=== PATIENT | male | born 1950 | race Caucasian/White ===

== ENCOUNTER 2025-03-04 15:25 | Emergency (ER) | payer MEDICAID, MEDICARE, SELFPAY ==
[2025-03-04] VITALS (20 sets, daily range): BP systolic 84–143; BP diastolic 50–63; PULSE 74–103; RESP 16–18; TEMP 36.4–36.8; O2SAT 92–98; BMI 31.3
--- NOTE | 2025-03-04 15:30 | DI.RAD.S_ITS ---
P the ROCEDURE: XR TIBIA FIBULA LT 2V INDICATIONS: r knee and upper leg pain, recent injury, abrasions, redness TECHNIQUE: 2 views of the tibia and fibula were acquired. COMPARISON: None. FINDINGS: Bones: No fractures or dislocations. No suspicious bony lesions. Mild degenerative changes of the knee and chondrocalcinosis. Soft tissues: No suspicious soft tissue calcifications or masses. No radiopaque foreign body or soft tissue gas. IMPRESSION: No acute abnormality. Dictated by: Preston Adair M.D. on 03/04/2025 at 16:16 Approved by: Preston Adair M.D. on 03/04/2025 at 16:16
--- NOTE | 2025-03-04 15:30 | DI.RAD.S_ITS ---
PROCEDURE: XR KNEE LT 3V INDICATIONS: knee and upper leg pain, recent injury, abrasions, redness TECHNIQUE: 3 views of the knee were acquired. COMPARISON: None. FINDINGS: Bones: No fractures or dislocations. No suspicious bony lesions. Tricompartmental joint space narrowing with associated osteophytosis. Soft tissues: No joint effusion. No suspicious soft tissue calcifications. Chondrocalcinosis IMPRESSION: No acute bony abnormality or significant effusion. Chondrocalcinosis, which can be seen in the setting of CPPD, aging, and parathyroid disorders. [id number]-[id number] tricompartmental osteoarthritis. Kellgren-Ramo Grade 2. Dictated by: Justyn Zavala M.D. on 03/04/2025 at 16:37 Approved by: Justyn Zavala M.D. on 03/04/2025 at 16:37
--- NOTE | 2025-03-04 15:31 | ED_ITS ---
HPI - General Adult General Chief complaint: Extremity Injury, Lower Stated complaint: LEFT knee pain Time Seen by Provider: 03/04/25 15:29 Source: patient, EMS, RN notes reviewed and old records reviewed Mode of arrival: EMS Limitations: no limitations History of Present Illness HPI narrative: 74-year-old male history of prior stroke with left-sided hemiparesis, hypertension, dyslipidemia, diabetes type 2, coronary artery disease, COPD on aspirin 81 mg patient presents with complaint of left knee and left lower extremity pain. Patient states last night or early this morning he was in his wheelchair was very dark he accidentally pushed himself in 2 bed frame forcefully. He states he has some pain and bruising at his knee but he also notes little bit of pain at the upper tibial area. Patient also has some scratches and abrasions on his left lower extremity he states those has been there about a week to 2 weeks which he states when it is from accidentally scratching himself there some redness at that area which he indicates maybe new. He states he can move his leg normally, he denies any changes to sensation or swelling. States he has a pain pill earlier which was helpful. He denies fevers or chills. No chest pain or shortness of breath. No nausea or vomiting. He denies any other GI or urinary symptoms. Reports an allergy to codeine and penicillin. He is unsure of his medical history and it was taken from his transfer report. Related Data Previous Rx's ?Medication ?Instructions ?Recorded clindamycin HCl 300 mg capsule 300 mg PO Q6H 7 days #2 8 caps 03/04/25 Allergies Allergy/AdvReac Type Severity Reaction Status Date / Time codeine Allergy Unknown Verified 03/04/25 15:28 Penicillins Allergy Unknown Verified 03/04/25 15:28 Review of Systems Review of Systems ROS Unobtainable: All systems reviewed & are unremarkable except as noted in HPI and below Patient History Social History Smoking Status: Current every day smoker Exam Narrative Exam Narrative: GENERAL: Alert and oriented x 2 self and location, conversant, patient is in mild distress HEENT: Head normocephalic, atraumatic, EOMI, pupils reactive, face symmetric, moist mucous membranes NECK: Supple, full range of motion CARDIOVASCULAR: Regular rate and rhythm without murmurs, rubs or gallops. RESPIRATORY: Breath sounds equal bilaterally, no wheezes rales or rhonchi. ABDOMEN: Soft, nontender. Normoactive bowel sounds all 4 quadrants. No guarding or rebound, rigidity, no mass : No CVA tenderness EXTREMITIES: Normal range of motion, no clubbing or edema. Neurovascularly intact. Patient has some ecchymosis of the left knee but no significant swelling, he is minimally tender on palpation with good range of motion. He has some mild tenderness of the upper anterior leg with no swelling. He has multiple abrasions on his left lower extremity. There is some erythema of the distal anterior javier. No bony tenderness. Positive pulses bilaterally. Patient has a normal range of motion of both lower extremities with sensation intact bilaterally. NEUROLOGICAL: Cranial nerves II through XII grossly intact. Moving all extremities SKIN: Warm, dry, no petechiae, no rashes or lesions other than noted above. Initial Vital Signs Initial Vital Signs: Vital Signs Temperature 97.5 F L 03/04/25 15:22 Pulse Rate 103 H 03/04/25 15:22 Respiratory Rate 18 03/04/25 15:22 Blood Pressure 84/53 L 03/04/25 15:22 Pulse Oximetry 94 03/04/25 15:22 Oxygen Delivery Method Room Air 03/04/25 15:22 Course Orders Ordered: ED Orders 03/04/25 15:30 XR knee LT 3V Stat XR tibia fibula LT 2V Stat CBC Auto Diff [Complete Blood Count AUTO DIFF] Stat CMP [Comprehensive Metabolic Panel] Stat Lactate (Lactic Acid) Stat Lipase Stat Procalcitonin Stat 03/04/25 15:58 Blood Culture Stat Discontinued Medications Sodium Chloride (Normal Saline 0.9%) 1,000 mls @ 1,000 mls/hr IV BOLUS ONE Stop: 03/04/25 16:30 Last Infusion: 03/04/25 16:52 Dose: Infused Documented By: Admin: 03/04/25 15:41 Dose: 1,000 mls/hr Documented By: ROSEY Clindamycin Phosphate (Cleocin) 900 mg in 50 mls @ 50 mls/hr IV NOW ONE Stop: 03/04/25 16:30 Last Infusion: 03/04/25 16:52 Dose: Infused Documented By: Admin: 03/04/25 15:41 Dose: 50 mls/hr Documented By: EB Vital Signs Vital signs: Vital Signs - 8 hr 03/04/25 15:22 03/04/25 15:29 03/04/25 15:36 Temperature 97.5 F L Pulse Rate 103 H 89 Respiratory Rate 18 Blood Pressure 84/53 L 104/54 L Pulse Oximetry 94 93 Oxygen Delivery Method Room Air 03/04/25 16:00 03/04/25 16:30 03/04/25 16:52 Temperature Pulse Rate 99 H 91 H Respiratory Rate 16 Blood Pressure 117/57 L Pulse Oximetry 94 97 Oxygen Delivery Method 03/04/25 16:52 03/04/25 17:00 03/04/25 17:00 Temperature Pulse Rate 87 76 Respiratory Rate 16 Blood Pressure 115/57 L Pulse Oximetry 95 97 Oxygen Delivery Method 03/04/25 17:30 03/04/25 17:30 03/04/25 17:52 Temperature Pulse Rate 75 94 H Respiratory Rate 16 Blood Pressure 111/50 L Pulse Oximetry 98 92 Oxygen Delivery Method 03/04/25 18:00 03/04/25 18:01 03/04/25 18:30 Temperature Pulse Rate 98 H Respiratory Rate Blood Pressure 127/58 L 111/53 L Pulse Oximetry 95 Oxygen Delivery Method 03/04/25 18:30 03/04/25 19:00 03/04/25 19:00 Temperature Pulse Rate 79 82 Respiratory Rate 18 Blood Pressure 111/53 L Pulse Oximetry 94 93 Oxygen Delivery Method 03/04/25 19:19 03/04/25 19:26 03/04/25 19:31 Temperature 97.9 F Pulse Rate 74 Respiratory Rate 18 Blood Pressure 111/53 L 143/63 H Pulse Oximetry 96 95 Oxygen Delivery Method Room Air 03/04/25 20:00 03/04/25 20:18 03/04/25 20:19 Temperature Pulse Rate 78 Respiratory Rate Blood Pressure 115/53 L 134/62 Pulse Oximetry 93 Oxygen Delivery Method 03/04/25 20:19 03/04/25 20:20 Temperature 98.2 F Pulse Rate 82 74 Respiratory Rate 18 Blood Pressure Pulse Oximetry 93 93 Oxygen Delivery Method Room Air Medical Decision Making Lab Data 03/04/25 15:30 03/04/25 15:30 Labs: Lab Results 03/04/25 03/04/25 Range/Units 15:30 17:32 WBC 9.5 (4.5-11.0) X10^3/uL RBC 4.74 (4.5-5.9) X10^6/uL Hgb 14.5 (13.5-17.5) g/dL Hct 43.7 (41-53) % MCV 92.2 (80-100) fL MCH 30.7 (26-34) PG MCHC 33.3 (30-36) % RDW 14.6 (11.6-14.8) % Plt Count 316 (150-400) X10^3/uL Neut % (Auto) 79.9 H (50-75) % Lymph % (Auto) 10.3 L (25-40) % Sargent % (Auto) 7.8 (3-14) % Eos % (Auto) 1.6 L (2-4) % Baso % (Auto) 0.4 (0-2) % Neut # (Auto) 7600 H (0314-4705) /uL Lymph # (Auto) 1000 L (8791-0099) /uL Sargent # (Auto) 700 (0-900) /uL Eos # (Auto) 200 (0-450) /uL Baso # (Auto) 0 (0-100) /uL Sodium 139 (137-145) mmol/L Potassium 4.9 (3.4-5.1) mmol/L Chloride 104 (98-107) mmol/L Carbon Dioxide 24 (22-32) mmol/L BUN 15 (9-20) mg/dL Creatinine 0.82 (0.66-1.25) mg/dL Estimated GFR > 60 (>60) mL/min BUN/Creatinine Ratio 18.3 (6-22) Glucose 214 H (70-99) mg/dL Lactate 2.7 H 2.6 H (0.7-2.1) mmol/L Calcium 9.5 (8.4-10.2) mg/dL Total Bilirubin 0.3 (0.2-1.3) mg/dL AST 29 (17-59) IU/L ALT 31 (<50) IU/L Alkaline Phosphatase 85 (38-126) U/L Total Protein 7.9 (6.3-8.2) g/dL Albumin 4.6 (3.5-5.0) g/dL Globulin 3.3 (1.7-4.1) g/dL Albumin/Globulin Ratio 1.4 (1.0-2.8) Lipase 258 (23-300) U/L Procalcitonin 0.057 (<0.5) ng/mL MDM Narrative Medical decision making narrative: 74-year-old male with right knee pain and lower extremity pain who notes injury last night does have some bruising although he is not very tender with good range of motion but also has some abrasions that appear to be potentially getting infected she states has been present for a week or more. Labs show normal white count, hemoglobin and platelets predominance of neutrophils, electrolytes BUN and creatinine are appropriate lactate is 2.7 LFTs are otherwise normal procalcitonin is 0.057. Repeat lactate is minimally decreased at 2.6 Right knee x-ray, no acute bony abnormality or significant effusion chondrocalcinosis which can be setting of CPPD, aging and parathyroid disorders [id number] tricompartmental osteoarthritis Kellgren-Ramo grade 2. Right tib-fib x-ray shows no acute abnormality Patient received antibiotics and fluids. Spoke with the patient he would very much desires return home his vitals are overall appropriate he is otherwise well-appearing he did not have a L of fluids his blood pressure, heart rate have all improved he has felt appropriate for discharge home but with a return precaution. Discharge Plan Departure Patient Disposition: Home Clinical Impression: Traumatic ecchymosis of left knee, Cellulitis of left leg Instructions: DI for Cellulitis -- Adult Activity Restrictions/Additional Instructions: Follow up with your physician for recheck. You would appear to be developing an infection in the skin of your lower extremity, take oral antibiotics until completed. Prescription printed. Your workup today did show some osteoarthritic changes to your knee as well as chondrocalcinosis there was no fractures or breaks or effusion. Please return for fevers, rapidly worsening swelling, redness or increasing pain, any discharge, new chest pain or shortness of breath or other new or concerning changes. Prescriptions: New clindamycin HCl 300 mg capsule 300 mg PO Q6H 7 Days Qty: 28 0RF Stand Alone Forms: Patient Portal/API
[2025-03-04] MEDS: SODIUM CHLORIDE 0.9% 1,000 ML 1000 ML IV (15:41)
[2025-03-04] MEDS: CLINDAMYCIN 900 MG/50 ML PIGGYBACK 50 MG IV (15:41)
[2025-03-04 15:43] LABS: Add Manual Diff / Slide Review NO; Hematocrit 43.7 % (41-53); Hemoglobin 14.5 g/dL (13.5-17.5); Lymphocytes Absolute Auto 1000 /uL (1100-4500); Mean Corpuscular HGB Conc 33.3 % (30-36); Mean Corpuscular Hemoglobin 30.7 PG (26-34); Mean Corpuscular Volume 92.2 fL (80-100); Platelet Count 316 X10^3/uL (150-400)
[2025-03-04 15:54] LABS: Lactate (Lactic Acid) 2.7 mmol/L (0.7-2.1)
[2025-03-04 15:56] LABS: Alanine Aminotransferase 31 IU/L (<50); Albumin 4.6 g/dL (3.5-5.0); Albumin Globulin Ratio 1.4 (1.0-2.8); Alkaline Phosphatase 85 U/L (38-126); Blood Urea Nitrogen 15 mg/dL (9-20); Calcium 9.5 mg/dL (8.4-10.2); Carbon Dioxide 24 mmol/L (22-32); Chloride 104 mmol/L (98-107); Estimated Glomerular Filt Rate > 60 mL/min (>60); Globulin 3.3 g/dL (1.7-4.1); Glucose 214 mg/dL (70-99); HEMOLYSIS < 15 (0-50); Lipase 258 U/L (23-300); Potassium 4.9 mmol/L (3.4-5.1); Sodium 139 mmol/L (137-145); Total Protein 7.9 g/dL (6.3-8.2)
[2025-03-04 16:11] LABS: Procalcitonin 0.057 ng/mL (<0.5)
[2025-03-04 17:13] LABS: Reflexed Lactate in 2 Hours Y
[2025-03-04 17:54] LABS: Lactate 2HR (Lactic Acid Rflx) 2.6 mmol/L (0.7-2.1)
--- NOTE | 2025-03-04 20:35 | PC.NURSE ---
pt itching and has scratches on his left leg with some redness. Also has scratches on left arm. States that he has been itching all over for a while. He denies n/v/d and is not having chest pain.
== END 2025-03-04 20:20 | disposition home or self-care (01) ==
PROVIDERS: Emergency Provider Emergency Medicine
DX: L03.116 Cellulitis of left lower limb (principal); S80.02XA Contusion of left knee, initial encounter; I69.354 Hemiplegia and hemiparesis following cerebral infarction affecting left non-dominant side; W22.09XA Striking against other stationary object, initial encounter; Z88.0 Allergy status to penicillin; F17.200 Nicotine dependence, unspecified, uncomplicated
CPT/HCPCS: 36415; 73562; 73590; 80053; 83605; 83690; 84145; 85025; 87040; 96365; 99284; J7030

== ENCOUNTER → 2025-03-12 07:59 | Outpatient (ROUT) | payer MEDICAID, MEDICARE, SELFPAY ==
[2025-03-12 08:21] LABS: Add Manual Diff / Slide Review NO; Hematocrit 42.8 % (41-53); Hemoglobin 14.1 g/dL (13.5-17.5); Lymphocytes Absolute Auto 1200 /uL (1100-4500); Mean Corpuscular HGB Conc 32.9 % (30-36); Mean Corpuscular Hemoglobin 30.1 PG (26-34); Mean Corpuscular Volume 91.5 fL (80-100); Platelet Count 268 X10^3/uL (150-400)
[2025-03-12 08:40] LABS: Alanine Aminotransferase 26 IU/L (<50); Albumin 3.8 g/dL (3.5-5.0); Albumin Globulin Ratio 1.3 (1.0-2.8); Alkaline Phosphatase 102 U/L (38-126); Blood Urea Nitrogen 16 mg/dL (9-20); Calcium 9.5 mg/dL (8.4-10.2); Carbon Dioxide 27 mmol/L (22-32); Chloride 105 mmol/L (98-107); Estimated Glomerular Filt Rate > 60 mL/min (>60); Globulin 2.9 g/dL (1.7-4.1); Glucose 210 mg/dL (70-99); HEMOLYSIS < 15 (0-50); Potassium 4.4 mmol/L (3.4-5.1); Sodium 140 mmol/L (137-145); Total Protein 6.7 g/dL (6.3-8.2)
== END ==
PROVIDERS: Visit Provider Hospitalist
DX: N18.9 Chronic kidney disease, unspecified (principal); L03.90 Cellulitis, unspecified
CPT/HCPCS: 36415; 80053; 85025